=== PATIENT | male | born 1985 | race African-American/Black ===

== ENCOUNTER 2021-07-31 14:02 | Emergency (ER) | payer OTHER ==
[2021-07-31 14:41] VITALS: BP 137/89; PULSE 92; TEMP 99.9; BMI 35.5
== END 2021-07-31 19:15 | disposition home or self-care (01) ==
LOC: JER 14:02
DX: B34.9 Viral infection, unspecified (principal)
CPT/HCPCS: 87804; 87807; 99283-25; C9803; U0003; U0005

== ENCOUNTER 2021-08-12 08:58 | Emergency (ER) | payer OTHER | END 2021-08-12 09:35 | disposition home or self-care (01) | LOC: JVIRT 08:58 | DX: Z20.822 Contact with and (suspected) exposure to COVID-19 (principal) | CPT/HCPCS: C9803; Q3014-GT; U0003; U0005 ==